=== PATIENT | female | born 1975 | race Native Hawaiian/Other Pacific Islander ===

== ENCOUNTER 2023-09-12 13:20 | Outpatient (CLI) | payer OTHER, SELFPAY | END 2023-09-12 13:21 | disposition home or self-care (01) | PROVIDERS: Visit Provider Physician Assistant Medical | DX: Z13.29 Encounter for screening for other suspected endocrine disorder (principal); Z13.220 Encounter for screening for lipoid disorders; Z13.228 Encounter for screening for other metabolic disorders | CPT/HCPCS: 80053; 80061; 84443 ==

== ENCOUNTER 2024-11-19 08:25 | Outpatient (CLI) | payer OTHER, SELFPAY | END 2024-11-19 08:26 | disposition home or self-care (01) | PROVIDERS: Visit Provider Physician Assistant Medical | DX: Z00.01 Encounter for general adult medical examination with abnormal findings (principal); R73.09 Other abnormal glucose; R53.83 Other fatigue; Z79.899 Other long term (current) drug therapy; Z13.6 Encounter for screening for cardiovascular disorders; Z11.4 Encounter for screening for human immunodeficiency virus [HIV]; Z11.59 Encounter for screening for other viral diseases | CPT/HCPCS: 80053; 80061; 82306; 84443; 86703; 86803 ==

== ENCOUNTER 2025-02-18 09:34 | Outpatient (CLI) | payer OTHER, SELFPAY | END 2025-02-18 09:35 | disposition home or self-care (01) | LOC: LKVREF 09:35 | PROVIDERS: Visit Provider Physician Assistant Medical | DX: R74.01 Elevation of levels of liver transaminase levels (principal) | CPT/HCPCS: 80076 ==